=== PATIENT | male | born 1975 | race Caucasian/White ===

== ENCOUNTER 2017-03-20 14:58 | Emergency (ER) | payer SELFPAY ==
[2017-03-20] MEDS ORDERED: BUPIVACAINE HCL/PF 5 MG/ML 10ML VIAL IJ ONE (15:15)
[2017-03-20] MEDS ORDERED: BUPIVACAINE HCL/PF 5 MG/ML 10ML VIAL IV ONE (15:21)
[2017-03-20 15:42] VITALS: BP 118/74
--- NOTE | 2017-03-20 16:38 | ED Physician Documentation ---
Sore Throat/Dental Pain - HISTORIAN Historian: patient - HPI Stated Complaint: dental pain Chief Complaint: Dental Pain Additional Information: Matthew has been having worsening dental pain for about a week now. He has had multiple dental infections over the years and takes antibiotics periodically for them. He reports that he has Crohn's disease and that his dental problems are d/t chronic vomiting. Onset: days ago Context: Possible Infection Associated Symptoms: denies: fever, chills, sore throat - ROS CONST: denies: no problems CVS/RESP: none GI/: denies: nausea, vomiting MS/SKIN/LYMPH: denies: muscle aches, rash NEURO/PSYCH: denies: headache, anxiety - PAST HX Past History: other (Crohn's disease) Other History: other (repeated dental infections) Immunizations: referred to PCP Allergies/Adverse Reactions: Allergies Allergy/AdvReac Type Severity Reaction Status Date / Time No Known Allergies Allergy Verified 03/20/17 15:12 Home Medications: Ambulatory Orders Medication Instructions Recorded Amoxicillin [Trimox] 500 mg PO TID #21 capsule 03/20/17 - SOCIAL HX Smoking History: cigarettes Alcohol Use: other (Denies significant alcohol use) - FAMILY HX Family History: No (non-contributory) - VITAL SIGNS Vital Signs: Vital Signs Temp Pulse Resp BP Pulse Ox 70 12 118/74 98 03/20/17 15:41 03/20/17 15:41 03/20/17 15:41 03/20/17 15:00 - REVIEWED ASSESSMENTS Nursing Assessment Reviewed: Yes Vitals Reviewed: Yes Progress - Progress Progress: Pt reported improvement from Marcaine injection. ED Results Lab/Radiology - Orders Orders: ED Orders Category Date Time Status Bupivacaine HCl/Pf [Marcaine 0.5%] Med 03/20/17 15:15 Discontinued 5 mg IJ NOW ONE Bupivacaine HCl/Pf [Marcaine 0.5%] Med 03/20/17 15:21 Discontinued 50 mg IV .STK-MED ONE Dental Pain Physical Exam - EXAM General Appearance: no acute distress Head/Neck: no lymphadenopathy, other (pain on palpation of left jaw, multiple dental problems with caries and broken teeth, swelling of gums around broken molar on left). No: pain over sinuses Eyes: eyes nml inspection, PERRL Mouth/Throat: lips nml. No: gums nml Respiratory: no resp. distress, breath sounds nml. No: wheezes CVS: reg. rate & rhythm, heart sounds nml Abdomen: soft, no distension Extremities: non-tender, nml ROM Skin: warm/dry, normal color Neuro/Psych: No: weakness, numbness Discharge Clincal Impression: Dental infection Referrals: Primary Doctor,No [Primary Care Provider] - 2 Days Additional Instructions: Rx was given for Tramadol 50mg #15 to be taken Q4-6 HRS PRN pain. He was also instructed to f/u with a dentist as soon as possible. We discussed the potential severity of dental infections. Home Medications: Ambulatory Orders Amoxicillin [Trimox] 500 mg PO TID #21 capsule 03/20/17 Condition: Stable Decision to Admit: NO Decision Time: 16:00
== END 2017-03-20 15:41 ==
LOC: ED 14:58
DX: K04.7 Periapical abscess without sinus (principal)
CPT/HCPCS: J3490 ×2; 96372; 99283

== ENCOUNTER 2017-04-14 11:19 | Emergency (ER) | payer SELFPAY ==
[2017-04-14 11:31] VITALS: BP 120/79
--- NOTE | 2017-04-14 11:40 | ED Physician Documentation ---
Sore Throat/Dental Pain - HISTORIAN Historian: patient - HPI Stated Complaint: Dental Pain Chief Complaint: Dental Pain Additional Information: Multiple dental infections over the years. Seen in this ER 03/21 and placed o n7 day course of amoxil. Waited for infectio nto go away before he saw dentist. Thinks infection not gone. Wants a different pain pill as he says tramadol nauseates him - ROS CONST: no problems - PAST HX Past History: other (dental infections, Crohn's) Allergies/Adverse Reactions: Allergies Allergy/AdvReac Type Severity Reaction Status Date / Time No Known Allergies Allergy Verified 04/14/17 11:31 Home Medications: Ambulatory Orders Medication Instructions Recorded NK [NK] 04/14/17 - SOCIAL HX Smoking History: non-smoker - FAMILY HX Family History: No - VITAL SIGNS Vital Signs: Vital Signs Temp Pulse Resp BP Pulse Ox 98 F 75 16 120/79 98 04/14/17 11:20 04/14/17 11:20 04/14/17 11:20 04/14/17 11:20 04/14/17 11:20 - REVIEWED ASSESSMENTS Nursing Assessment Reviewed: Yes Vitals Reviewed: Yes Dental Pain Physical Exam - EXAM General Appearance: no acute distress, alert Head/Neck: head nml inspection, neck nml inspection, other (very poor dention. # 18 fractured, 40% visible tooth absent, surrounding gingiva swollen and erythematous) Eyes: eyes nml inspection Mouth/Throat: lips nml, pharynx nml, voice nml Ear/Nose: nml inspection Respiratory: no resp. distress Extremities: nml ROM (gait) Skin: warm/dry, normal color Neuro/Psych: No: weakness Discharge Clincal Impression: Chronic dental pain Referrals: Primary Doctor,No [Primary Care Provider] - 2 Days Additional Instructions: See the dentist as soon as possible. Home Medications: Ambulatory Orders NK [NK] 04/14/17 Comments: Paper scripts for 10 days Amoxil, Tyl #3 #18. Condition: Good Disposition: 01 HOME, SELF-CARE Decision to Admit: NO Decision Time: 11:40
== END 2017-04-14 11:50 | disposition home or self-care (01) ==
LOC: ED 11:19
DX: G89.29 Other chronic pain (principal); K08.89 Other specified disorders of teeth and supporting structures
CPT/HCPCS: 99283

== ENCOUNTER 2017-05-01 14:35 | Emergency (ER) | payer SELFPAY ==
[2017-05-01 14:50] VITALS: BP 119/78
--- NOTE | 2017-05-01 15:10 | ED Physician Documentation ---
Sore Throat/Dental Pain - HISTORIAN Historian: patient - HPI Stated Complaint: Dental pain Chief Complaint: Dental Pain Further Comments: yes (41 year old male patient presents with right upper molar pain x 3 days. Patient reports he has an appointment with dentist on Monday. Was seen in Er recently for dental abscess of left bottom molar.) - ROS CONST: no problems CVS/RESP: none GI/: denies: problems urinating, nausea, vomiting, other MS/SKIN/LYMPH: denies: muscle aches, rash, leg swelling, ankle swelling, other NEURO/PSYCH: none - PAST HX Past History: gum disease Other History: other (Colitis) Allergies/Adverse Reactions: Allergies Allergy/AdvReac Type Severity Reaction Status Date / Time No Known Allergies Allergy Verified 05/01/17 14:45 Home Medications: Ambulatory Orders Medication Instructions Recorded Penicillin V Potassium [Pen V K] 500 mg PO TID #30 tablet 05/01/17 - SOCIAL HX Smoking History: cigarettes - FAMILY HX Family History: No - VITAL SIGNS Vital Signs: Vital Signs Temp Pulse Resp BP Pulse Ox 99.4 F 80 16 119/78 98 05/01/17 14:45 05/01/17 14:45 05/01/17 14:45 05/01/17 14:45 05/01/17 14:45 - REVIEWED ASSESSMENTS Nursing Assessment Reviewed: Yes Vitals Reviewed: Yes Dental Pain Physical Exam - EXAM General Appearance: mild distress Head/Neck: head nml inspection, trachea midline, neck nml inspection Mouth/Throat: lips nml, pharynx nml, voice nml, no drooling, no air way problems , no thrush, membranes nml, gum swelling around teeth (right upper back molar # 47; multiple missing teeth. Decay into gumline. ), widespread dental decay (to gumline, multiple missing teeth) Respiratory: no resp. distress CVS: reg. rate & rhythm Skin: normal color, warm/dry, NR, INT, PAL, DR Neuro/Psych: No: weakness Discharge Clincal Impression: Dental infection, Pain, dental Prescriptions: Penicillin V Potassium [Pen V K] 500 mg PO TID #30 tablet Referrals: Primary Doctor,No [Primary Care Provider] - 2 Days Additional Instructions: Ibuprofen 800mg every 8 hours x 3 days Tylenol as needed for pain Over the counter [employer] - follow package directions. 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 See your dentist as soon as possible Home Medications: Ambulatory Orders Penicillin V Potassium [Pen V K] 500 mg PO TID #30 tablet 05/01/17 Condition: Stable Disposition: 01 HOME, SELF-CARE Decision to Admit: NO Decision Time: 15:09
== END 2017-05-01 15:12 | disposition home or self-care (01) ==
LOC: ED 14:35
DX: K04.7 Periapical abscess without sinus (principal)
CPT/HCPCS: 99283

== ENCOUNTER 2017-06-15 18:11 | Emergency (ER) | payer SELFPAY ==
--- NOTE | 2017-06-15 19:04 | ED Physician Documentation ---
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 Was not given any medication for pain and is having a lot of pain at this time.) - ROS CONST: no problems - PAST HX Past History: other (Crohn's disease) Allergies/Adverse Reactions: Allergies Allergy/AdvReac Type Severity Reaction Status Date / Time No Known Allergies Allergy Verified 06/15/17 19:14 Home Medications: Ambulatory Orders Medication Instructions Recorded Penicillin V Potassium [Pen V K] 500 mg PO TID #30 tablet 05/01/17 traMADol HCL [Ultram] 50 mg PO Q6H PRN #20 tablet 06/15/17 - SOCIAL HX Smoking History: cigarettes, greater than 1 pack/day Alcohol Use: none Drug Use: none - FAMILY HX Family History: Yes - VITAL SIGNS Vital Signs: Vital Signs Temp Pulse Resp BP Pulse Ox 119/78 05/01/17 15:12 - REVIEWED ASSESSMENTS Nursing Assessment Reviewed: No Vitals Reviewed: No Dental Pain Physical Exam - EXAM General Appearance: alert, moderate distress Head/Neck: head nml inspection, trachea midline, no lymphadenopathy, thyroid nml Mouth/Throat: lips nml, pharynx nml, voice nml, no air way problems, widespread dental decay, other (three back teeth on the left lower jaw have been extracted. Mild blood oozing. Mild swelling to the gum) Respiratory: no resp. distress, breath sounds nml. No: wheezes, rales, rhonchi CVS: reg. rate & rhythm, heart sounds nml Abdomen: soft, no organomegaly Skin: warm/dry, normal color Neuro/Psych: other (cognition normal) Discharge Clincal Impression: Pain, dental Referrals: Primary Doctor,No [Primary Care Provider] - 2 Days Additional Instructions: Continue with instructions from dental school. Take Motrin 200mg up to 4 tablets with food three times a day for the next 3-4 days. Take Tramadol with food for break through pain. This may cause nausea. Condition: Stable Disposition: 01 HOME, SELF-CARE Decision to Admit: NO Date of Decison to Admit: 06/15/17 Decision Time: 19:23
[2017-06-15] MEDS: KETOROLAC TROMETHAMINE 60 MG/2 ML VIAL IM ONE (19:20)
[2017-06-15 19:28] VITALS: BP 120/68
== END 2017-06-15 19:26 | disposition home or self-care (01) ==
LOC: ED 18:11
DX: K08.89 Other specified disorders of teeth and supporting structures (principal)
CPT/HCPCS: 96372; 99283; J1885

== ENCOUNTER 2017-11-11 06:58 | Emergency (ER) | payer SELFPAY ==
[2017-11-11] MEDS: 0.9 % SODIUM CHLORIDE 1,000 ML IV ONE ×3 (07:04→07:44)
[2017-11-11] MEDS: ONDANSETRON HCL/PF 4 MG/ 2ML VIAL ONE (07:04)
[2017-11-11] MEDS: KETOROLAC TROMETHAMINE 30 MG/1ML VIAL ONE (07:05)
--- NOTE | 2017-11-11 07:18 | ED Physician Documentation ---
Abdominal Pain - HISTORIAN Historian: patient, spouse - HPI Stated Complaint: Left Flank Pain Chief Complaint: Flank Pain Onset: days ago (2) Duration: constant, worse Context: denies: out of country travel, bad food, recent trauma Severity: moderate Quality: pain, sharp, stabbing Associated Symptoms: nausea, vomiting. denies: fever, chills, coffee ground emesis, diarrhea Exacerbated by: denies: nothing Relieved by: denies: nothing Further Comments: yes (He states he has a history of Chrons disease but does not feel that he has that today. States two days ago he started to have cramping in left lower back for a few days and he felt that he pulled a muscle in his back. He states late last night or early am he started to have left lower back pain and now moving around to the front lower left abdomen. He states that he has had nausea and vomiting. No fever. No other symptoms) - ROS CONST: no problems GI/: other (Chron's Disease ) CVS/RESP: none EYES/ENT: none MS/SKIN/LYMPH: none NEURO/PSYCH: none - SOCIAL HX Smoking History: cigarettes Alcohol Use: occasionally - FAMILY HX Family History: none - PAST HX Past History: other (Chron's Disease ) Ischemic Bowel Risk Factors: none Other History: none Surgeries/Procedures: none Immunizations: UTD Home Medications: Ambulatory Orders Medication Instructions Recorded Penicillin V Potassium [Pen V K] 500 mg PO TID #30 tablet 05/01/17 traMADol HCL [Ultram] 50 mg PO Q6H PRN #20 tablet 06/15/17 Allergies/Adverse Reactions: Allergies Allergy/AdvReac Type Severity Reaction Status Date / Time No Known Allergies Allergy Verified 06/15/17 19:14 - VITAL SIGNS Vital Signs: Vital Signs Temp Pulse Resp BP Pulse Ox 97 F L 78 18 150/89 99 11/11/17 06:58 11/11/17 06:58 11/11/17 06:58 11/11/17 06:58 11/11/17 06:58 - REVIEWED ASSESSMENTS Nursing Assessment Reviewed: Yes Vitals Reviewed: Yes Progress - Progress Progress: 0740: pt is resting quietly in bed. Still unable to provide a urine sample. DG 0820: in room with pt to discuss discharge and upon wakening he states his pain is starting back. Same left flank pain that is moving to the left lower quadrant. He states the nausea is a zero but pain is increasing and could he have more pain med. He cannot produce urine at this time for urine sample. DG 0858: States pain is now a 3 on 1/10 scale. resting quietly . DG 1012: Pt is requesting to just go home - CT scan not reported yet. states pain is zero and nausea is gone. DG ED Results Lab/Radiology - Lab Results Lab Results: Lab Results 11/11/17 11/11/17 11/11/17 08:37 07:20 07:20 WBC 10.50 K/ul K/ul (4.00-12.00) RBC 4.81 M/ul M/ul (3.90-5.20) Hgb 15.8 g/dL g/dL (12.0-18.0) Hct 45.6 % % (37.0-53.0) MCV 94.8 fl fl (80.0-100.0) MCH 32.8 pg pg (28.0-34.0) MCHC 34.6 g/dL g/dL (30.0-36.0) RDW 12.4 % % (11.3-14.3) Plt Count 292 K/mm3 K/mm3 (130-400) Neut % (Auto) 61.1 % % (39.0-79.0) Lymph % (Auto) 28.2 % % (16.0-50.0) Maverick % (Auto) 5.3 % % (0.0-11.0) Eos % (Auto) 2.3 % % (0.0-6.8) Baso % (Auto) 0.8 (0.0-1.5) Neut # (Auto) 6.4 # k/uL # k/uL (1.4-7.7) Lymph # (Auto) 3.0 # k/uL # k/uL (0.6-4.0) Maverick # (Auto) 0.6 # k/uL # k/uL (0.0-0.9) Eos # (Auto) 0.2 # k/uL # k/uL (0.0-0.6) Baso # (Auto) 0.1 # k/uL # k/uL (0.0-0.5) Reactive Lymphs % 2.2 % % (0.0-5.0) Reactive Lymphs # 0.2 # k/uL # k/uL (0.0-0.8) Sodium 138 mmol/L mmol/L (136-145) Potassium 4.4 mmol/L mmol/L (3.5-5.1) Chloride 104 mmol/L mmol/L (98-107) Carbon Dioxide 21 mmol/L L mmol/L (22-30) BUN 15 mg/dL mg/dL (9-20) Creatinine 1.00 mg/dL mg/dL (0.66-1.25) Estimated Creat Clear 103 Est GFR ( Amer) > 60 (60 - ) Est GFR (Non-Af Amer) > 60 (60 - ) Glucose 117 mg/dL H mg/dL (74-106) Calcium 9.3 mg/dL mg/dL (8.4-10.2) Total Bilirubin 1.1 mg/dL mg/dL (0.2-1.3) AST 31 U/L U/L (15-46) ALT 30 U/L U/L (13-69) Alkaline Phosphatase 65 U/L U/L (38-126) Total Protein 7.4 g/dL g/dL (6.3-8.2) Albumin 4.1 g/dL g/dL (3.5-5.0) Urine Color Not entered (YELLOW) Urine Appearance Not entered (CLEAR) Urine pH Pending Ur Specific [place] Pending Urine Protein Pending Urine Ketones Pending Urine Occult Blood Pending Urine Nitrite Pending Urine Bilirubin Pending Urine Urobilinogen Pending Ur Leukocyte Esterase Pending Urine RBC 10-25 H (0-2 HPF) Urine WBC 25-50 H (0-5 HPF) Calcium Oxalate Crystal Few H (NEGATIVE) Amorphous Sediment Moderate H (NEGATIVE) Urine Bacteria Few H (NEGATIVE) Urine Glucose Pending - Radiology Radiology Impressions: Examination: CT Abdomen/pelvis History: PT STATES LLQ PAIN AND FLANK PAIN X 1 DAY, HX OF CROHN'S DISEASE, HX OF KIDNEY STONE X 8 YEARS AGO (Hx) Comparison exams: None available Technique: CT Abdomen/pelvis without IV protocol. Findings: Kidneys are symmetric in size. Bilateral calyceal calcifications. Prominence of the left intrarenal collecting system and proximal ureter. Within the proximal left ureter is a 3 mm calcification. Remainder of the left ureter is within normal limits. Right ureter without calcification or or abnormal dilation. Bladder margin is within normal limits. Prostate calcification. Liver, spleen, adrenals, pancreas, and gallbladder are without gross irregularity given exam technique. No gallstone. Abdominal aorta without aneurysm or peripheral atherosclerotic disease. Cardiac silhouette is not enlarged. No pericardial effusion. Bowel unopacified limiting evaluation. No abnormal dilation. Stool within the large bowel limiting sensitivity. No mesenteric inflammatory changes or free fluid. Surgical sutures in the region of the cecum. Osseous structures within normal limits. Lung bases without infiltrate. No effusion. Impression: 3 mm proximal left ureterolithiasis with proximal dilation of the ureter/intrarenal collecting system - obstructive uropathy. Bilateral nephrolithiasis. No abdominal mass or acute upper abdominal organ inflammatory process. No abnormal bowel dilation or inflammation. Postsurgical changes in the region of the cecum No gallstone. No lung base consolidation or effusion. Electronically signed on Nov 11, 2017 10:12:00 AM CDT by: Aaron Cartagena - Orders Orders: ED Orders Category Date Time Status Place IV Lock 1T Care 11/11/17 07:[address] ABD & PELVIS W/O CON Stat Exams 11/11/17 Taken CBC/PLATELET/DIFF Stat Lab 11/11/17 07:20 Completed CMP Stat Lab 11/11/17 07:20 Completed UA W/MICRO IF INDICATED Routine Lab 11/11/17 08:37 Results URINE CULTURE Routine Lab 11/11/17 08:37 Received 0.9 % Sodium Chloride [Normal Saline] 1,000 ml Med 11/11/17 07:02 Discontinued IV .STK-MED 0.9 % Sodium Chloride [Normal Saline] 1,000 ml Med 11/11/17 07:19 Discontinued IV Q1H 0.9 % Sodium Chloride [Normal Saline] 1,000 ml Med 11/11/17 07:41 Discontinued IV Q1H Ketorolac Tromethamine [Toradol] Med 11/11/17 07:02 Discontinued 30 mg .ROUTE .STK-MED ONE Ketorolac Tromethamine [Toradol] Med 11/11/17 07:20 Discontinued 30 mg IVP NOW ONE Ondansetron HCl/Pf [Zofran 4 mg/2 ml] Med 11/11/17 07:02 Discontinued 4 mg .ROUTE .STK-MED ONE Ondansetron HCl/Pf [Zofran 4 mg/2 ml] Med 11/11/17 07:20 Discontinued 4 mg IVP NOW ONE fentaNYL CITRATE/PF [Duragesic] Med 11/11/17 08:20 Discontinued 50 mcg IVP NOW ONE Abdominal Pain Physical Exam - Physical Exam General Appearance: alert, mild distress EENT: eye inspection normal NECK: normal inspection RESPIRATORY: no resp distress, chest non-tender, breath sounds normal CVS: reg rate & rhythm, heart sounds normal, equal pulses, no murmur ABDOMEN: soft, normal bowel sounds, tenderness (general ), guarding. No: rebound, distended SKIN: warm/dry, normal color EXTREMITIES: non-tender, normal range of motion, no evidence of injury, no edema NEURO: oriented X3, CN's nml as tested, motor nml, sensation nml, mood/affect nml Vital Signs: Vital Signs Temp Pulse Resp BP Pulse Ox 97 F L 78 18 150/89 99 11/11/17 06:58 11/11/17 06:58 11/11/17 06:58 11/11/17 06:58 11/11/17 06:58 Discharge Clincal Impression: Flank pain Referrals: Primary Doctor,No [Primary Care Provider] - 2 Days Additional Instructions: 1. increase fluids 2. bland diet 3. Monitor urine output 4. Return to ER for any concerns : blood in urine , increased pain, fever Condition: Stable Disposition: 01 HOME, SELF-CARE Decision to Admit: NO Date of Decison to Admit: 11/11/17 Decision Time: 10:15
[2017-11-11 07:26] LABS: BASOPHILS % 0.8 (0.0-1.5); EOSINOPHILS % 2.3 % (0.0-6.8); MEAN CORPUSCULAR HEMOGLOBIN 32.8 pg (28.0-34.0); MEAN CORPUSCULAR VOLUME 94.8 fl (80.0-100.0); MONOCYTES % 5.3 % (0.0-11.0); NEUTROPHILS # 6.4 # k/uL (1.4-7.7)
[2017-11-11 07:31] LABS: eGFR (African) > 60; eGFR (Non-African) > 60
[2017-11-11] MEDS: ONDANSETRON HCL/PF 4 MG/ 2ML VIAL IVP ONE (07:44)
[2017-11-11] MEDS: KETOROLAC TROMETHAMINE 30 MG/1ML VIAL IVP ONE (07:44)
[2017-11-11] MEDS: fentaNYL CITRATE/PF 100 MCG/ 2ML AMP IVP ONE (08:24)
[2017-11-11 09:15] LABS: AMORPHOUS SEDIMENT,UR MODERATE (NEGATIVE)
--- NOTE | 2017-11-11 10:14 | Diagnostic Imaging Report ---
JUDY WILLAMS [facility] [address] [facility] [address] [place], [place]. [address] Report Submission Date: Nov 11, 2017 10:12:00 AM CDT Patient Study Name: EMMANUEL IZQUIERDO A Date: Nov 11, 2017 9:23:12 AM CDT Modality Type: CT\SR Gender: M Description: ABD/PELVIS W/O CONTRAS : 75 Institution: [facility] Physician: JUDY WILLAMS Examination: CT Abdomen/pelvis History: PT STATES LLQ PAIN AND FLANK PAIN X 1 DAY, HX OF CROHN'S DISEASE, HX OF KIDNEY STONE X 8 YEARS AGO (Hx) Comparison exams: None available Technique: CT Abdomen/pelvis without IV protocol. Findings: Kidneys are symmetric in size. Bilateral calyceal calcifications. Prominence of the left intrarenal collecting system and proximal ureter. Within the proximal left ureter is a 3 mm calcification. Remainder of the left ureter is within normal limits. Right ureter without calcification or or abnormal dilation. Bladder margin is within normal limits. Prostate calcification. Liver, spleen, adrenals, pancreas, and gallbladder are without gross irregularity given exam technique. No gallstone. Abdominal aorta without aneurysm or peripheral atherosclerotic disease. Cardiac silhouette is not enlarged. No pericardial effusion. Bowel unopacified limiting evaluation. No abnormal dilation. Stool within the large bowel limiting sensitivity. No mesenteric inflammatory changes or free fluid. Surgical sutures in the region of the cecum. Osseous structures within normal limits. Lung bases without infiltrate. No effusion. Impression: 3 mm proximal left ureterolithiasis with proximal dilation of the ureter/intrarenal collecting system - obstructive uropathy. Bilateral nephrolithiasis. No abdominal mass or acute upper abdominal organ inflammatory process. No abnormal bowel dilation or inflammation. Postsurgical changes in the region of the cecum No gallstone. No lung base consolidation or effusion. Electronically signed on Nov 11, 2017 10:12:00 AM CDT by: Aaron HUI
[2017-11-11 10:17] VITALS: BP 120/68
== END 2017-11-11 10:16 | disposition home or self-care (01) ==
LOC: ED 06:58
DX: N20.0 Calculus of kidney (principal); K50.90 Crohn's disease, unspecified, without complications; F17.210 Nicotine dependence, cigarettes, uncomplicated
CPT/HCPCS: 74176; 80053; 81002; 85025; 87086; J1885; J2405; J3010; J7030; 96365; 96375; 99283; S1016

== ENCOUNTER 2017-11-12 16:24 | Emergency (ER) | payer SELFPAY ==
--- NOTE | 2017-11-12 16:36 | ED Physician Documentation ---
General Adult - HISTORIAN Historian: patient - HPI Stated Complaint: flank pain (kidney stone on CT 11.11.2017) Chief Complaint: Flank Pain Onset: other (5) Timing: still present Severity: mild Further Comments: yes (He states his pain was improved yesterday and he did not get nausea med due to cost. He started to vomit last night and then he has not "held anything down all night" He states yesterday he had pain of 15 on 1/10 scale and today only like a 5-6 on 1/10 scale.) Last known Well Code/Unknown Code: Unknown - ROS CONST: denies: fever EYES/ENT: none CVS/RESP: none GI/: abdominal pain, vomiting, nausea. denies: problems urinating MS/SKIN/LYMPH: none - PAST HX Past History: none Other History: none Surgeries/Procedures: none Immunizations: UTD Allergies/Adverse Reactions: Allergies Allergy/AdvReac Type Severity Reaction Status Date / Time No Known Allergies Allergy Verified 11/12/17 16:42 Home Medications: Ambulatory Orders Medication Instructions Recorded traMADol HCL [Ultram] 50 mg PO Q6H PRN #20 tablet 06/15/17 - SOCIAL HX Smoking History: cigarettes Alcohol Use: occasionally Drug Use: none - FAMILY HX Family History: No - VITAL SIGNS Vital Signs: Vital Signs Temp Pulse Resp BP Pulse Ox 120/68 11/11/17 10:16 - REVIEWED ASSESSMENTS Nursing Assessment Reviewed: Yes Vitals Reviewed: Yes General Adult Physical Exam - PHYSICAL EXAM GENERAL APPEARANCE: no distress EENT: eye inspection normal NECK: normal inspection RESPIRATORY: no resp distress, chest non-tender, breath sounds normal CVS: reg rate & rhythm, heart sounds normal, equal pulses, no murmur ABDOMEN: soft, guarding, other (mild pain with palpation on left lower abdomen although soft and no rebounding ) SKIN: warm/dry EXTREMITIES: non-tender, normal range of motion, no evidence of injury, no edema NEURO: oriented X3, CN's nml as tested, motor nml, sensation nml, mood/affect nml Discharge Clincal Impression: Flank pain Referrals: Primary Doctor,No [Primary Care Provider] - 2 Days Comments: 1. Toradol 10 mg take 1 by mouth every 8 hours as needed for pain 2. Phenergan 25 mg take 1 by mouth every 8 hours as needed for nausea 3. Increase fluids 4. See PCP in 2-4 days 5. Return to ER for continued pain Condition: Stable Disposition: 01 HOME, SELF-CARE Decision to Admit: NO Date of Decison to Admit: 11/12/17 Decision Time: 17:09
[2017-11-12] MEDS ORDERED: KETOROLAC TROMETHAMINE 60 MG/2 ML VIAL IM ONE (17:02)
[2017-11-12] MEDS ORDERED: PROMETHAZINE HCL 25 MG/ML VIAL IM ONE (17:02)
[2017-11-12 17:26] VITALS: BP 124/71
[2017-11-13 07:15] LABS: APPEARANCE,URINE CLEAR (CLEAR); COLOR,URINE AMBER (YELLOW)
[2017-11-13 07:16] LABS: OCCULT BLOOD,URINE 2+ (NEGATIVE); UROBILINOGEN URINE 0.2 Eu (0.2-1.0)
[2017-11-13 07:18] LABS: CANNABINOIDS NON NEGATIVE ng/mL (< 50); METHYLENEDIOXYMETHAMPHETAMINE NEGATIVE ng/mL (<500)
== END 2017-11-12 17:14 | disposition home or self-care (01) ==
LOC: ED 16:24
DX: R10.9 Unspecified abdominal pain (principal)
CPT/HCPCS: 80377; 81002; J1885; J2550; 96372; 99282; 99283; G0481